=== PATIENT | female | born 1990 | race Caucasian/White ===

== ENCOUNTER 2017-08-10 08:34 | Inpatient (IN) | payer BC ==
[~2017-08-10] VITALS: Ht 61 cm; Wt 90.7 kg
[~2017-08-10 08:34] MED LIST: ABILIFY ORAL; ATIVAN1 MG ORAL; BACLOFEN10 MG ORAL; LINZESS290 MCG PO; ONDANSETRON ODT4 MG ORAL; OXYCODONE-ACET1 EAC3 ORAL; PROZAC20 MG ORAL
[2017-08-10] MEDS ORDERED: LYRICA75 M1 ORAL (08:47)
[2017-08-10] MEDS ORDERED: HYDROMORPHONE HC2 M1 PO (08:47)
[2017-08-10 08:57] VITALS: BP 124/84
[2017-08-10] MEDS ORDERED: DiphenhydrAMINE 50mg/ml Inj IVP ONE ×3 (09:00→13:30)
[2017-08-10] MEDS ORDERED: fentaNYL 100 mcg/2 mL IV ONE ×2 (09:00→10:00)
--- NOTE | 2017-08-10 09:04 | Emergency Room Report ---
History of Present Illness General Chief Complaint: Abdominal Pain Source: Patient Present Illness HPI The patient presents with epigastric pain that wraps around to her back. She has a history of chronic pancreatitis and feels that this is one of her episodes. She's been vomiting. Usually she is able to take Dilaudid 2 mg every 4 hours control the pain. She's been unable to keep this medication down. The pain is 7/10 constant and burning. She was last treated at [facility] of 4 weeks ago for the same problem. She was not admitted at that time, however states the previous episode she was admitted to [facility]. She states that morphine causes spasms of the sphincter of Oddi and therefore Dilaudid or fentanyl I would've been used to control the pain. She is under pain management at this time. The pain began yesterday. No fevers, chills. Feels dehydrated. The patient has periods every 3 months. She's on hormonal control of this. She denies dysuria. There is no blood in the vomitus and no melena. She denies chest pain, cough, shortness of breath. No headache. No rashes. No extremity pain or swelling. 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 Now: No Reviewed Nursing Documentation: PMH: Agreed; PSxH: Agreed Nursing Documentation-PMH Past Medical History: No History, Except For Hx Cardiac Problems: No Hx Cancer: No Hx Gastrointestinal Problems: Yes - pancreatitis History Of Psychiatric Problem: Yes - depression Hx Neurological Problems: No - cervical surgery Review of Systems All Other Systems: negative except mentioned in HPI Physical Exam Vital Signs Date Time Temp Pulse Resp B/P (MAP) Pulse Ox O2 Delivery O2 Flow Rate FiO2 08/10/17 08:38 98.2 90 19 124/84 97 Room Air 98.2 Sp02 EP Interpretation: reviewed, normal General Appearance: well appearing, no apparent distress, GCS 15 Head: normocephalic Eyes: bilateral eye normal inspection, bilateral eye PERRL ENT: moist mucus membranes Neck: supple Respiratory: lungs clear, normal breath sounds Cardiovascular #1: regular rate, rhythm Cardiovascular #2: 2+ radial (R) Gastrointestinal: normal inspection, normal bowel sounds, non tender, no mass, non-distended Musculoskeletal: back normal, gait/station normal, normal range of motion Neurologic: alert, oriented x3, grossly normal Psychiatric: mood/affect normal Skin: normal inspection, warm/dry Medical Decision Making Diagnostic Impression: Primary Impression: Chronic abdominal pain Additional Impression: Persistent vomiting and nausea ER Course Patient presents with abdominal pain. Differential includes pancreatitis, gastritis, peptic ulcer disease, gastroenteritis, gastritis, drug seeking behavior amongst others. She is post cholecystectomy. Evaluation will be with laboratory. She'll be treated with IV hydration and parenteral analgesics along with Pepcid. At this time based on her exam I don't believe ultrasound or imaging is indicated. Labs basically normal. Lipase could be "normal" with chronic pancreatitis. After 1st dose of fentanyl, pain decreased to 6. Repeat dose. Not surgical abdomen, but some tenderness still. Patient improved. Poorly tolerate PO intake and pain "returning". IVPB dilaudid ordered. C/O itching but somewhat improved. Solumedrol given (small dose). Dr. Le stated he wanted business support liaison MD to admit. Admit med Dr. Lee. Laboratory Tests Test 08/10/17 09:10 08/10/17 09:50 White Blood Count 7.6 K/UL (4.8-10.8) Red Blood Count 4.87 M/UL (4.20-5.40) Hemoglobin 13.9 G/DL (12.0-16.0) Hematocrit 42.7 % (37.0-47.0) Mean Corpuscular Volume 88 FL (80-99) Mean Corpuscular Hemoglobin 28.6 PG (27.0-31.0) Mean Corpuscular Hemoglobin Concent 32.6 G/DL (32.0-36.0) Red Cell Distribution Width 11.9 % (11.6-14.8) Platelet Count 259 K/UL (150-450) Mean Platelet Volume 9.3 FL (6.5-10.1) Neutrophils (%) (Auto) 49.2 % (45.0-75.0) Lymphocytes (%) (Auto) 36.2 % (20.0-45.0) Monocytes (%) (Auto) 5.8 % (1.0-10.0) Eosinophils (%) (Auto) 7.0 % (0.0-3.0) H Basophils (%) (Auto) 1.8 % (0.0-2.0) Prothrombin Time 9.5 SEC (9.30-11.50) Prothrombin Time INR 0.9 (0.9-1.1) PTT 28 SEC (23-33) Sodium Level 138 MMOL/L (136-145) Potassium Level 4.1 MMOL/L (3.5-5.1) Chloride Level 103 MMOL/L (98-107) Carbon Dioxide Level 25 MMOL/L (21-32) Anion Gap 10 mmol/L (5-15) Blood Urea Nitrogen 13 mg/dL (7-18) Creatinine 0.8 MG/DL (0.55-1.30) Estimate Glomerular Filtration Rate > 60 mL/min (>60) Glucose Level 90 MG/DL (74-106) Calcium Level 8.9 MG/DL (8.5-10.1) Total Bilirubin 0.4 MG/DL (0.2-1.0) Aspartate Amino Transferase (AST) 47 U/L (15-37) H Alanine Aminotransferase (ALT) 20 U/L (12-78) Alkaline Phosphatase 68 U/L (46-116) Total Protein 8.2 G/DL (6.4-8.2) Albumin 3.6 G/DL (3.4-5.0) Globulin 4.6 g/dL Albumin/Globulin Ratio 0.8 (1.0-2.7) L Lipase 185 U/L (73-393) Urine Color Pale yellow Urine Appearance Clear Urine pH 6 (4.5-8.0) Urine Specific [place] 1.015 (1.005-1.035) Urine Protein Negative (NEGATIVE) Urine Glucose (UA) Negative (NEGATIVE) Urine Ketones Negative (NEGATIVE) Urine Occult Blood 1+ (NEGATIVE) H Urine Nitrite Negative (NEGATIVE) Urine Bilirubin Negative (NEGATIVE) Urine Urobilinogen Normal MG/DL (0.0-1.0) Urine Leukocyte Esterase Negative (NEGATIVE) Urine RBC 2-4 /HPF (0 - 2) H Urine WBC 0 /HPF (0 - 2) Urine Squamous Epithelial Cells Occasional /LPF Urine Bacteria Occasional /HPF (NONE) Urine HCG, Qualitative Negative (NEGATIVE) Last Vital Signs Date Time Temp Pulse Resp B/P (MAP) Pulse Ox O2 Delivery O2 Flow Rate FiO2 08/10/17 08:38 98.2 90 19 124/84 97 Room Air 98.2 Disposition: ADMITTED INPATIENT Condition: Serious Kendall Urena M.D. August 10, 2017 09:04
[2017-08-10 09:35] LABS: BASOPHILS % (AUTO) 1.8 % (0.0-2.0); HEMATOCRIT 42.7 % (37.0-47.0); HEMOGLOBIN 13.9 G/DL (12.0-16.0); LYMPHOCYTES % (AUTO) 36.2 % (20.0-45.0); MEAN CORPUSCULAR VOLUME 88 FL (80-99); MONOCYTES % (AUTO) 5.8 % (1.0-10.0); NEUTROPHILS % (AUTO) 49.2 % (45.0-75.0); PLATELET COUNT 259 K/UL (150-450); RED BLOOD COUNT 4.87 M/UL (4.20-5.40); RED CELL DISTRIBUTION WIDTH 11.9 % (11.6-14.8); WHITE BLOOD COUNT 7.6 K/UL (4.8-10.8)
[2017-08-10 09:44] LABS: INR 0.9 (0.9-1.1)
[2017-08-10 09:48] LABS: ALANINE AMINOTRANSFERASE 20 U/L (12-78); ALBUMIN 3.6 G/DL (3.4-5.0); ALBUMIN/GLOBULIN RATIO 0.8 (1.0-2.7); ALKALINE PHOSPHATASE 68 U/L (46-116); ASPARTATE AMINO TRANSFERASE 47 U/L (15-37); BILIRUBIN,TOTAL 0.4 MG/DL (0.2-1.0); BLOOD UREA NITROGEN 13 mg/dL (7-18); CALCIUM 8.9 MG/DL (8.5-10.1); CHLORIDE 103 MMOL/L (98-107); CREATININE 0.8 MG/DL (0.55-1.30)
[2017-08-10 09:55] LABS: ANION GAP 10 mmol/L (5-15); CARBON DIOXIDE 25 MMOL/L (21-32); POTASSIUM 4.1 MMOL/L (3.5-5.1); SODIUM 138 MMOL/L (136-145)
[2017-08-10 10:08] LABS: APPEARANCE,URINE CLEAR; BILIRUBIN, URINE NEGATIVE (NEGATIVE); COLOR,URINE PALE YELLOW; GLUCOSE, URINE (UA) NEGATIVE (NEGATIVE); KETONES,URINE NEGATIVE (NEGATIVE); LEUKOCYTE ESTERASE ,URINE NEGATIVE (NEGATIVE); NITRITE,URINE NEGATIVE (NEGATIVE); PH,URINE 6 (4.5-8.0); PROTEIN,URINE NEGATIVE (NEGATIVE); UROBILINOGEN,URINE NORMAL MG/DL (0.0-1.0)
[2017-08-10 10:45] VITALS: BP 118/78
[2017-08-10] MEDS ORDERED: HYDROmorphone 1mg/NS 50ml IVPB 50 ML IVPB SCH (12:25)
[2017-08-10] MEDS ORDERED: Solu-MEDROL 40mg Inj IVP STA (13:22)
[2017-08-10 13:51] VITALS: BP 124/76
--- NOTE | 2017-08-10 15:53 | GI Initial Consult Note ---
History of Present Illness General Date patient seen: August 10, 2017 Time patient seen: 15:44 Reason for Hospitalization: Abdominal Pain Referring physician: TIMOTHY CARTAGENA Reason for Consultation: ABDOMINAL PAIN Present Illness HPI The patient presents with epigastric pain that wraps around to her back. She has a history of chronic pancreatitis and feels that this is one of her episodes. She's been vomiting. Usually she is able to take Dilaudid 2 mg every 4 hours control the pain. She's been unable to keep this medication down. The pain is 7/10 constant and burning. She was last treated at [facility] of 4 weeks ago for the same problem. She states that morphine causes spasms of the sphincter Vertie and therefore Dilaudid or fentanyl I would've been used to control the pain. She is under pain management at this time. The pain began yesterday. The patient has periods every 3 months. She's on hormonal control of this. She denies dysuria. There is no blood in the vomitus and no melena. She denies chest pain, cough, shortness of breath. GI consulted for abdominal pain. Pt seen in ED, awake A&Ox4 NAD c/o of RUQ pain with radiation to the back and neck. C/o of nausea without vomiting. Denies any diarrhea or melena. 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 Hx of cholecystectomy and endoscopy found to have gastritis. Labs reviewed, mainly unremarkable. States this is a recurrent episode for her. Home Meds Reported Medications Pregabalin* (LYRICA*) 75 Mg Capsule, 150 MG ORAL DAILY, CAP 08/10/17 Hydromorphone Hcl (HYDROMORPHONE HCL) 2 Mg Tablet, 2 MG PO, TAB 08/10/17 Oxycodone Hcl/Acetaminophen 5-325* (OXYCODONE-ACETAMINOPHEN 5-325*) 1 Each Tablet, 1 TAB ORAL EVERY 6 HOURS PRN for Pain Scale (3-5), TAB 0 Refills 10/06/14 Ondansetron Odt* (ZOFRAN ODT*) 4 Mg Tab.rapdis, 4 MG ORAL EVERY 8 HOURS, #10 TAB 0 Refills 10/06/14 Lorazepam* (ATIVAN*) 1 Mg Tablet, 1 MG ORAL EVERY 6 HOURS PRN for Agitation, TAB 7/10/15 Fluoxetine Hcl* (PROZAC*) 20 Mg Capsule, 20 MG ORAL QHS, CAP 10/06/14 Aripiprazole (ABILIFY) 1 Mg/1 Ml Solution, 10 MG ORAL QHS 10/06/14 Baclofen* (BACLOFEN*) 10 Mg Tablet, 5 MG ORAL EVERY 12 HOURS, TAB 10/06/14 Linaclotide (LINZESS) 290 Mcg Capsule, 290 MCG PO DAILY, CAP 10/06/14 Med list reviewed/reconciled: Yes Allergies: Coded Allergies: CEPHALEXIN (Unverified Allergy, Unknown, 10/05/14) CLINDAMYCIN (Unverified Allergy, Unknown, 10/05/14) DOXYCYCLINE (Unverified Allergy, Unknown, 10/05/14) LEVOFLOXACIN (Unverified Allergy, Unknown, 10/05/14) PENICILLINS (Unverified Allergy, Unknown, 10/05/14) SULFA (SULFONAMIDE ANTIBIOTICS) (Unverified Allergy, Unknown, 10/05/14) Patient History History Provided By: Patient, Medical Record PMH Narrative Past Medical History: see triage record Social History: Denies: smoking, alcohol use Social History Narrative 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 [employer]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 Now: No Reviewed Nursing Documentation: PMH: Agreed; PSxH: Agreed Nursing Documentation-PMH Past Medical History: No History, Except For Hx Cardiac Problems: No Hx Cancer: No Hx Gastrointestinal Problems: Yes - pancreatitis History Of Psychiatric Problem: Yes - depression Hx Neurological Problems: No - cervical surgery Social History: Denies: smoking, alcohol use, drug use, other Review of Systems All Other Systems: negative except mentioned in HPI Physical Exam Vital Signs Date Time Temp Pulse Resp B/P (MAP) Pulse Ox O2 Delivery O2 Flow Rate FiO2 08/10/17 08:38 98.2 90 19 124/84 97 Room Air 98.2 Sp02 EP Interpretation: reviewed, normal Labs Laboratory Tests Test 08/10/17 09:10 08/10/17 09:50 White Blood Count 7.6 K/UL (4.8-10.8) Red Blood Count 4.87 M/UL (4.20-5.40) Hemoglobin 13.9 G/DL (12.0-16.0) Hematocrit 42.7 % (37.0-47.0) Mean Corpuscular Volume 88 FL (80-99) Mean Corpuscular Hemoglobin 28.6 PG (27.0-31.0) Mean Corpuscular Hemoglobin Concent 32.6 G/DL (32.0-36.0) Red Cell Distribution Width 11.9 % (11.6-14.8) Platelet Count 259 K/UL (150-450) Mean Platelet Volume 9.3 FL (6.5-10.1) Neutrophils (%) (Auto) 49.2 % (45.0-75.0) Lymphocytes (%) (Auto) 36.2 % (20.0-45.0) Monocytes (%) (Auto) 5.8 % (1.0-10.0) Eosinophils (%) (Auto) 7.0 % (0.0-3.0) H Basophils (%) (Auto) 1.8 % (0.0-2.0) Prothrombin Time 9.5 SEC (9.30-11.50) Prothromb Time International Ratio 0.9 (0.9-1.1) Activated Partial Thromboplast Time 28 SEC (23-33) Sodium Level 138 MMOL/L (136-145) Potassium Level 4.1 MMOL/L (3.5-5.1) Chloride Level 103 MMOL/L (98-107) Carbon Dioxide Level 25 MMOL/L (21-32) Anion Gap 10 mmol/L (5-15) Blood Urea Nitrogen 13 mg/dL (7-18) Creatinine 0.8 MG/DL (0.55-1.30) Estimat Glomerular Filtration Rate > 60 mL/min (>60) Glucose Level 90 MG/DL (74-106) Calcium Level 8.9 MG/DL (8.5-10.1) Total Bilirubin 0.4 MG/DL (0.2-1.0) Aspartate Amino Transf (AST/SGOT) 47 U/L (15-37) H Alanine Aminotransferase (ALT/SGPT) 20 U/L (12-78) Alkaline Phosphatase 68 U/L (46-116) Total Protein 8.2 G/DL (6.4-8.2) Albumin 3.6 G/DL (3.4-5.0) Globulin 4.6 g/dL Albumin/Globulin Ratio 0.8 (1.0-2.7) L Lipase 185 U/L (73-393) Urine Color Pale yellow Urine Appearance Clear Urine pH 6 (4.5-8.0) Urine Specific [place] 1.015 (1.005-1.035) Urine Protein Negative (NEGATIVE) Urine Glucose (UA) Negative (NEGATIVE) Urine Ketones Negative (NEGATIVE) Urine Occult Blood 1+ (NEGATIVE) H Urine Nitrite Negative (NEGATIVE) Urine Bilirubin Negative (NEGATIVE) Urine Urobilinogen Normal MG/DL (0.0-1.0) Urine Leukocyte Esterase Negative (NEGATIVE) Urine RBC 2-4 /HPF (0 - 2) H Urine WBC 0 /HPF (0 - 2) Urine Squamous Epithelial Cells Occasional /LPF Urine Bacteria Occasional /HPF (NONE) Urine HCG, Qualitative Negative (NEGATIVE) General Appearance: well appearing, no apparent distress, alert Head: normocephalic EENT: PERRL/EOMI, normal ENT inspection Neck: supple Respiratory: normal breath sounds, no respiratory distress Cardiovascular: normal rate Gastrointestinal: normal inspection, non tender, soft, normal bowel sounds, non -distended Rectal: deferred Genitourinary: no CVA tenderness Musculoskeletal: normal inspection, back normal Neurologic: normal inspection, alert, oriented x3, responsive Psychiatric: normal inspection, judgement/insight normal, memory normal Skin: normal inspection, normal color, no rash, warm/dry, palpation normal, well hydrated Lymphatic: normal inspection, no adenopathy Current Medications Current Medications Medications (Trade) Dose Ordered Sig/Merly Route PRN Reason Start Time Stop Time Status Last Admin Dose Admin Sodium Chloride 1,000 ml @ 300 mls/hr Q3H20M IV 08/10/17 09:00 09/09/17 08:59 08/10/17 13:39 GI: Plan Problems: (1) History of jejunostomy tube placement (2) Sphincter of Oddi dysfunction (3) Chronic pancreatitis (4) Chronic abdominal pain Plan Hx of cholecystectomy Hx of GJ feeding tube AST elevation obtain abdominal U/S CLD, adv as tolerated to regular diet after imaging study pain mgmt zofran prn, compazine for persistent nausea H2B BID lipid panel fu labs, AST Discussed with Dr. Treviño. Thank you for this patient referral, we will follow. The patient was seen and examined at bedside and all new and available data was reviewed in the patients chart. I agree with the above findings, impression and plan. (Patient seen earlier today. Signature stamp does not reflect patient encounter time.). - MD Bijal PerezRe[facility] PERSONAL BANKING OFFICER August 10, 2017 15:53
[2017-08-10 16:08] VITALS: BP 118/75
[2017-08-10] MEDS: DiphenhydrAMINE 50mg/ml Inj IVP PRN ×2 (16:59→20:54)
[2017-08-10] MEDS: Morphine Sulfate 4mg/ml Inj IVP PRN ×2 (16:59→20:53)
[2017-08-10 20:16] VITALS: BP 113/68
--- NOTE | 2017-08-11 00:15 | History and Physical Report ---
DATE OF ADMISSION: 08/10/2017 HISTORY OF PRESENT ILLNESS: This is a 27-year-old female with a previous history of chronic pancreatitis. She reports chronic pain and takes Dilaudid at home on a regular basis. She came to the hospital with complaints of epigastric pain. She states she is unable to keep the medications down. She states she was at [facility] weeks ago with the same problem. She reports that she cannot tolerate morphine. PAST MEDICAL HISTORY: Notable for chronic pancreatitis. PAST SURGICAL HISTORY: None reported. MEDICATIONS: Home medications include Prozac, Abilify, baclofen, Zofran, Lyrica, and Dilaudid. REVIEW OF SYSTEMS: The patient denies hematemesis, melena, or hematochezia. No weight loss. PHYSICAL EXAMINATION: GENERAL: Reveals a young female. HEENT: Unremarkable. . ABDOMEN: Soft. EXTREMITIES: There is no edema. NEUROLOGIC: Nonfocal. LABORATORY AND DIAGNOSTIC DATA: Lab testing shows normal CBC and BMP. Urinalysis negative. Imaging studies negative so far. IMPRESSION: Chronic pancreatitis with acute pain flare. DISCUSSION: We will admit to the hospital. We will consult GI and pain management and note the patient has multiple allergies including cephalexin, clindamycin, doxycycline, Levaquin, penicillin, and sulfa. medications. 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 Appreciate consultations. Nicholas Lee M.D. DR: MICHAEL JOB#: [id number] CC:
[2017-08-11 00:32] VITALS: BP 108/66
[2017-08-11] MEDS: Morphine Sulfate 4mg/ml Inj IVP PRN ×4 (00:55→12:50)
[2017-08-11] MEDS: DiphenhydrAMINE 50mg/ml Inj IVP PRN ×4 (00:55→12:49)
[2017-08-11 04:44] VITALS: BP 119/77
[2017-08-11 07:55] LABS: BASOPHILS % (AUTO) 1.1 % (0.0-2.0); EOSINOPHILS % (AUTO) 0.1 % (0.0-3.0); HEMATOCRIT 38.7 % (37.0-47.0); HEMOGLOBIN 12.9 G/DL (12.0-16.0); LYMPHOCYTES % (AUTO) 25.2 % (20.0-45.0); MEAN CORPUSCULAR VOLUME 88 FL (80-99); MONOCYTES % (AUTO) 6.7 % (1.0-10.0); NEUTROPHILS % (AUTO) 66.9 % (45.0-75.0); PLATELET COUNT 268 K/UL (150-450); RED BLOOD COUNT 4.41 M/UL (4.20-5.40); RED CELL DISTRIBUTION WIDTH 11.5 % (11.6-14.8); WHITE BLOOD COUNT 8.8 K/UL (4.8-10.8)
[2017-08-11 08:00] VITALS: BP 122/74
[2017-08-11 09:20] LABS: ALANINE AMINOTRANSFERASE 16 U/L (12-78); ALBUMIN 3.2 G/DL (3.4-5.0); ALBUMIN/GLOBULIN RATIO 0.8 (1.0-2.7); ALKALINE PHOSPHATASE 63 U/L (46-116); ANION GAP 9 mmol/L (5-15); ASPARTATE AMINO TRANSFERASE 20 U/L (15-37); BILIRUBIN,TOTAL 0.3 MG/DL (0.2-1.0); BLOOD UREA NITROGEN 10 mg/dL (7-18); CALCIUM 8.6 MG/DL (8.5-10.1); CARBON DIOXIDE 23 MMOL/L (21-32); CHLORIDE 105 MMOL/L (98-107); CHOLESTEROL 209 MG/DL (< 200); CREATININE 0.8 MG/DL (0.55-1.30); HDL CHOLESTEROL 53 MG/DL (40-60); POTASSIUM 3.8 MMOL/L (3.5-5.1); SODIUM 137 MMOL/L (136-145); TRIGLYCERIDES 80 MG/DL (30-150)
--- NOTE | 2017-08-11 10:30 | Diagnostic Imaging Report ---
Indication: Abdominal pain Technique: Lemos-scale and duplex images of the upper abdomen were obtained Comparison: 10/06/2014 Findings: Gallbladder is surgically absent. Sonographic Stapleton's sign is negative. Common bile duct measures 2 mm in diameter. No intrahepatic biliary ductal dilatation. Liver demonstrates normal echogenicity, no focal abnormality. Portal vein and hepatic veins are patent. Pancreas is incompletely visualized due to overlying bowel gas, visualized portions are unremarkable. Spleen is unremarkable. Left kidney measures 12.4 cm in length. Right kidney measures 12 cm length. Both kidneys demonstrate normal echogenicity. There is no hydronephrosis. No focal abnormality . Abdominal aorta is obscured by bowel gas . No significant interim change Impression: Surgically absent gallbladder. Negative for dilated ducts No significant or acute abnormality demonstrated Note inability to visualize the abdominal aorta and portions of the pancreas
--- NOTE | 2017-08-11 10:59 | Pulmonology Progress Note ---
Assessment/Plan Assessment/Plan IMPRESSION: Chronic pancreatitis with acute pain flare. 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 Appreciate consultations. Subjective Interval Events: Still in pain Constitutional: Reports: no symptoms HEENT: Repors: no symptoms Respiratory: Reports: no symptoms Cardiovascular: Reports: no symptoms Gastrointestinal/Abdominal: Reports: no symptoms Allergies: Coded Allergies: CEPHALEXIN (Unverified Allergy, Unknown, 10/05/14) CLINDAMYCIN (Unverified Allergy, Unknown, 10/05/14) DOXYCYCLINE (Unverified Allergy, Unknown, 10/05/14) LEVOFLOXACIN (Unverified Allergy, Unknown, 10/05/14) PENICILLINS (Unverified Allergy, Unknown, 10/05/14) SULFA (SULFONAMIDE ANTIBIOTICS) (Unverified Allergy, Unknown, 10/05/14) Objective Last 24 Hour Vital Signs Date Time Temp Pulse Resp B/P (MAP) Pulse Ox O2 Delivery O2 Flow Rate FiO2 08/11/17 08:00 98.6 89 18 122/74 98.6 08/11/17 05:23 98.1 08/11/17 04:53 98.1 08/11/17 04:47 Room Air 08/11/17 04:44 98.1 93 16 119/77 94 98.1 08/11/17 00:55 98.2 08/11/17 00:39 Room Air 08/11/17 00:32 98.2 94 17 108/66 97 98.2 08/10/17 21:23 97.9 08/10/17 20:53 97.9 08/10/17 20:41 Room Air 08/10/17 20:16 97.9 97 17 113/68 97 97.9 08/10/17 16:08 98.1 88 18 118/75 94 Room Air 98.1 08/10/17 15:26 98.0 82 20 124/78 99 Room Air 08/10/17 13:51 98.0 89 18 124/76 99 Room Air 98.0 08/10/17 12:33 98.0 Intake and Output 08/10/17 08/11/17 19:00 07:00 Intake Total 300 ml Output Total 3 ml Balance 297 ml Intake IV Total 300 ml Output Urine Total 3 ml # Voids 3 # Bowel Movements 2 General Appearance: no acute distress HEENT: normocephalic Respiratory/Chest: chest wall non-tender, lungs clear Cardiovascular: normal peripheral pulses Abdomen: normal bowel sounds Laboratory Tests 08/11/17 06:40: White Blood Count 8.8, Red Blood Count 4.41, Hemoglobin 12.9, Hematocrit 38.7, Mean Corpuscular Volume 88, Mean Corpuscular Hemoglobin 29.2, Mean Corpuscular Hemoglobin Concent 33.3, Red Cell Distribution Width 11.5L, Platelet Count 268, Mean Platelet Volume 9.0, Neutrophils (%) (Auto) 66.9, Lymphocytes (%) (Auto) 25.2, Monocytes (%) (Auto) 6.7, Eosinophils (%) (Auto) 0.1, Basophils (%) (Auto ) 1.1, Sodium Level 137, Potassium Level 3.8, Chloride Level 105, Carbon Dioxide Level 23, Anion Gap 9, Blood Urea Nitrogen 10, Creatinine 0.8, Estimat Glomerular Filtration Rate > 60, Glucose Level 94, Calcium Level 8.6, Total Bilirubin 0.3, Aspartate Amino Transf (AST/SGOT) 20, Alanine Aminotransferase ( ALT/SGPT) 16, Alkaline Phosphatase 63, Total Protein 7.2, Albumin 3.2L, Globulin 4.0, Albumin/Globulin Ratio 0.8L, Triglycerides Level 80, Cholesterol Level 209H, LDL Cholesterol 147H, HDL Cholesterol 53, Cholesterol/HDL Ratio 3.9 Current Medications Medications (Trade) Dose Ordered Sig/Merly Route PRN Reason Start Time Stop Time Status Last Admin Dose Admin Acetaminophen (Tylenol) 650 mg Q6H PRN ORAL Mild Pain/Temp > 100.5 08/10/17 16:45 09/09/17 16:44 Diphenhydramine HCl (Benadryl) 25 mg Q4H PRN IVP Itching 08/10/17 16:30 09/09/17 16:29 08/11/17 08:54 Famotidine (Pepcid I.v.) 20 mg Q12HR IVP 08/10/17 21:00 09/09/17 20:59 08/11/17 08:58 Morphine Sulfate (Morphine Sulfate) 2 mg Q4H PRN IVP For Pain 08/10/17 16:30 08/17/17 16:29 08/10/17 20:53 Morphine Sulfate (Morphine Sulfate) 4 mg Q4H PRN IVP Severe Pain (Pain Scale 7-10) 08/10/17 23:15 08/17/17 23:14 08/11/17 08:54 Ondansetron HCl (Zofran) 4 mg Q6H PRN IVP Nausea & Vomiting 08/10/17 16:00 09/09/17 15:59 08/11/17 07:57 Prochlorperazine (Compazine) 10 mg Q6H PRN IV Nausea & Vomiting 08/11/17 10:30 09/09/17 10:29 08/11/17 10:34 Nicholas Lee MD August 11, 2017 10:59
[2017-08-11 11:48] VITALS: BP 126/84
[2017-08-11] MEDS ORDERED: PROCHLORPERAZINE5 MG ORAL (13:56)
--- NOTE | 2017-08-11 16:00 | GI Progress Note ---
Assessment/Plan Problems: (1) Chronic pancreatitis ICD Codes: K86.1 - Chronic pancreatitis SNOMED: 606544054 (2) Chronic abdominal pain ICD Codes: R10.9 - Unspecified abdominal pain; G89.29 - Other chronic pain SNOMED: 396448991 (3) Sphincter of Oddi dysfunction ICD Codes: K83.4 - Sphincter of Oddi dysfunction SNOMED: 338391461 (4) Chronic abdominal pain ICD Codes: R10.9 - Unspecified abdominal pain; G89.29 - Other chronic pain SNOMED: 303552075 (5) History of jejunostomy tube placement ICD Codes: Z98.89 - History of jejunostomy tube placement SNOMED: 644516363 Status: stable Status Narrative Seen with Dr. Treviño. Assessment/Plan Hx of cholecystectomy Hx of GJ feeding tube AST elevation >> now normal abdominal U/S reviewed >> unremarkable okay for DC per GI standpoint Rx for Compazine 5mg PO called into pharmacy. The patient was seen and examined at bedside and all new and available data was reviewed in the patients chart. I agree with the above findings, impression and plan. (Patient seen earlier today. Signature stamp does not reflect patient encounter time.). - Jean-Claude Treviño MD Subjective Subjective abdominal pain improved Objective Last 24 Hour Vital Signs Date Time Temp Pulse Resp B/P (MAP) Pulse Ox O2 Delivery O2 Flow Rate FiO2 08/11/17 11:48 98.4 95 18 126/84 98.4 08/11/17 08:00 98.6 89 18 122/74 98.6 08/11/17 05:23 98.1 08/11/17 04:53 98.1 08/11/17 04:47 Room Air 08/11/17 04:44 98.1 93 16 119/77 94 98.1 08/11/17 00:55 98.2 08/11/17 00:39 Room Air 08/11/17 00:32 98.2 94 17 108/66 97 98.2 08/10/17 21:23 97.9 08/10/17 20:53 97.9 08/10/17 20:41 Room Air 08/10/17 20:16 97.9 97 17 113/68 97 97.9 08/10/17 16:08 98.1 88 18 118/75 94 Room Air 98.1 Intake and Output 08/10/17 08/11/17 19:00 07:00 Intake Total 300 ml Output Total 3 ml Balance 297 ml IV Total 300 ml Output Urine Total 3 ml # Voids 3 # Bowel Movements 2 Laboratory Tests Test 08/11/17 06:40 White Blood Count 8.8 K/UL (4.8-10.8) Red Blood Count 4.41 M/UL (4.20-5.40) Hemoglobin 12.9 G/DL (12.0-16.0) Hematocrit 38.7 % (37.0-47.0) Mean Corpuscular Volume 88 FL (80-99) Mean Corpuscular Hemoglobin 29.2 PG (27.0-31.0) Mean Corpuscular Hemoglobin Concent 33.3 G/DL (32.0-36.0) Red Cell Distribution Width 11.5 % (11.6-14.8) L Platelet Count 268 K/UL (150-450) Mean Platelet Volume 9.0 FL (6.5-10.1) Neutrophils (%) (Auto) 66.9 % (45.0-75.0) Lymphocytes (%) (Auto) 25.2 % (20.0-45.0) Monocytes (%) (Auto) 6.7 % (1.0-10.0) Eosinophils (%) (Auto) 0.1 % (0.0-3.0) Basophils (%) (Auto) 1.1 % (0.0-2.0) Sodium Level 137 MMOL/L (136-145) Potassium Level 3.8 MMOL/L (3.5-5.1) Chloride Level 105 MMOL/L (98-107) Carbon Dioxide Level 23 MMOL/L (21-32) Anion Gap 9 mmol/L (5-15) Blood Urea Nitrogen 10 mg/dL (7-18) Creatinine 0.8 MG/DL (0.55-1.30) Estimat Glomerular Filtration Rate > 60 mL/min (>60) Glucose Level 94 MG/DL (74-106) Calcium Level 8.6 MG/DL (8.5-10.1) Total Bilirubin 0.3 MG/DL (0.2-1.0) Aspartate Amino Transf (AST/SGOT) 20 U/L (15-37) Alanine Aminotransferase (ALT/SGPT) 16 U/L (12-78) Alkaline Phosphatase 63 U/L (46-116) Total Protein 7.2 G/DL (6.4-8.2) Albumin 3.2 G/DL (3.4-5.0) L Globulin 4.0 g/dL Albumin/Globulin Ratio 0.8 (1.0-2.7) L Triglycerides Level 80 MG/DL (30-150) Cholesterol Level 209 MG/DL (< 200) H LDL Cholesterol 147 mg/dL (<100) H HDL Cholesterol 53 MG/DL (40-60) Cholesterol/HDL Ratio 3.9 (3.3-4.4) Height (Feet): 2 Height (Inches): 0.00 Weight (Pounds): 200 General Appearance: WD/WN, no apparent distress, alert Cardiovascular: normal rate Respiratory/Chest: normal breath sounds, no respiratory distress Abdominal Exam: normal bowel sounds, non tender, soft Extremities: normal range of motion, non-tender Javier Appiah NP August 11, 2017 15:59
--- NOTE | 2017-08-13 09:27 | Discharge Summary ---
Discharge Summary Hospital Course Date of Admission August 10, 2017 at 12:30 Date of Discharge August 11, 2017 at 14:59 Admitting Diagnosis abdominal pain HPI Clara Tiwari is a 27 year old female who was admitted on August 10, 2017 at 12 :30 for Abdominal Pain Hospital Course [id number] Discharge Discharge Disposition Patient was discharged to Home (01) Sadia Garza NP August 13, 2017 09:27
--- NOTE | 2017-08-14 02:00 | Discharge Summary 2 SIG ---
DATE OF ADMISSION: 08/10/2017 DATE OF DISCHARGE: 08/11/2017 EXECUTIVE ADVISOR: Jean-Claude Treviño M.D. BRIEF HOSPITAL COURSE: The patient is a 27-year-old female with previous history of chronic pancreatitis, reported chronic pain, and takes Dilaudid at home on a regular basis. She came to the hospital complaining of epigastric pain and is unable to keep any medications down. She stated that she was at [facility] four weeks prior due to same problems. She denied fever or chills and felt dehydrated. Denied any vomitus or melena. No chest pain, cough, or shortness of breath. On evaluation at ED, she was given IV hydration and Pepcid. Blood work showed no leukocytosis. However, lipase was elevated to 185. Urine HCG was negative. She was given pain management and was eventually admitted for evaluation of pancreatitis with acute pain flare. She was followed by wound treatment rn. Abdominal ultrasound showed a surgically absent gallbladder and negative for dilated ducts. No significant acute abnormality. Diet was advanced. She had an elevated AST, which eventually normalized. She was given Compazine and was eventually cleared for discharge home. Urinalysis was negative. FINAL DIAGNOSES: Chronic pancreatitis with acute pain flare. DISPOSITION: The patient was discharged home. DISCHARGE MEDICATIONS: Refer to medication list. DISCHARGE INSTRUCTIONS: Follow up with PCP in a week. Nicholas Lee M.D. I have been assigned to dictate discharge summary on this account and I was not involved in the patient's management. Sadia Garza N.P. DR: JOSE JUAN JOB#: [id number] CC: LIANA
== END 2017-08-11 14:59 | disposition home or self-care (01) | DRG 440 ==
LOC: EMR 09:17 → 4W 12:30 → EDBEDREQ 13:02
DX: K85.90 Acute pancreatitis without necrosis or infection, unspecified (principal); K86.1 Other chronic pancreatitis; Z88.1 Allergy status to other antibiotic agents; Z88.0 Allergy status to penicillin; Z88.2 Allergy status to sulfonamides; F32.9 Major depressive disorder, single episode, unspecified; K83.4 Spasm of sphincter of Oddi
CPT/HCPCS: 36415; 76700; 80053; 80061; 81003; 81025; 83690; 85025; 85610; 85730; 99285; J2405